=== PATIENT | female | born 1995 | race Caucasian/White ===

== ENCOUNTER 2024-05-24 19:08 | Inpatient (IN) | payer OTHER ==
[~2024-05-24] VITALS: Ht 167.6 cm; Wt 98.6 kg
[2024-05-24] MEDS ORDERED: FentaNYL 2mcg/ml-Bup 0.1% Epd 250 ML EPI PRN (19:45)
[2024-05-24] MEDS ORDERED: Lactated Ringer's 1,000 ML IV PRN ×3 (19:45→19:50)
[2024-05-24] MEDS ORDERED: Methylergonovine Maleate 0.2MG / ML 1ML Amp IM PRN (19:45)
[2024-05-24] MEDS ORDERED: ePHEDrine Sulfate 50 MG/ML 1ML Injection XX PRN (19:45)
[2024-05-24] MEDS ORDERED: OXYTOCIN/RINGER'S LACTATE 500 ML IV PRN (19:45)
[2024-05-24] MEDS ORDERED: Lactated Ringer's 1,000 ML IV SCH (19:45)
[2024-05-24] MEDS ORDERED: Oxytocin 10 Unit / ML Vial IM PRN (19:45)
[2024-05-24] MEDS ORDERED: Misoprostol 200 MCG Tab BC PRN (19:45)
[2024-05-24] MEDS ORDERED: Misoprostol 200 MCG Tab PR PRN (19:45)
[2024-05-24] MEDS ORDERED: Carboprost Tromethamine 250 MCG/ML 1ML Amp IM PRN (19:45)
[2024-05-24] MEDS ORDERED: Tranexamic Acid 100 ML IV PRN (19:50)
[2024-05-24] MEDS ORDERED: Misoprostol 25 MCG Tab VAG PRN (19:50)
[2024-05-24] MEDS ORDERED: Ondansetron HCl 2 MG / ML 2ML Vial IV PRN (19:50)
[2024-05-24] MEDS ORDERED: Acetaminophen 500 MG Tab PO PRN (19:50)
[2024-05-24] MEDS ORDERED: Calcium Carbonate 500 MG Tab Chew PO PRN (19:50)
[2024-05-24 19:58] VITALS: BP 133/74
[2024-05-24] MEDS ORDERED: DiphenhydrAMINE HCl 50 MG Cap PO PRN (20:15)
[2024-05-24] MEDS ORDERED: Zolpidem Tartrate 5 MG Tab PO PRN (20:15)
[2024-05-24] MEDS ORDERED: FentaNYL Citrate 50 MCG/ML 2 ML Injection IV PRN (20:20)
[2024-05-24] MEDS ORDERED: PRENATAL TABLE1 EAC2 PO (20:35)
[2024-05-24] MEDS ORDERED: Benzocaine/Benzethon Topical Anesthetic Spray 78GM TOP SCH (20:45)
[2024-05-24 21:44] LABS: BASOPHILS ABSOLUTE AUTO 0.02 K/mm3 (0.00-0.23); BASOPHILS PERCENT AUTO 0 % (0-2); EOSINOPHILS ABSOLUTE AUTO 0.04 K/mm3 (0.00-0.68); EOSINOPHILS PERCENT AUTO 0 % (0-6); Hematocrit 34.6 % (33.0-51.0); Hemoglobin 11.7 g/dL (11.5-16.0); IMMATURE GRAN ABSOLUTE AUTO 0.06 K/mm3 (0.00-0.10); IMMATURE GRAN PERCENT AUTO 1 % (0-1); LYMPHOCYTES ABSOLUTE AUTO 2.07 K/mm3 (0.84-5.20); LYMPHOCYTES PERCENT AUTO 23 % (21-46); MONOCYTES ABSOLUTE AUTO 0.52 K/mm3 (0.16-1.47); MONOCYTES PERCENT AUTO 6 % (4-13); Mean Corpuscular HGB 30.9 pg (26.0-34.0); Mean Corpuscular HGB Conc 33.8 g/dL (31.5-36.5); Mean Corpuscular Volume 91 fL (80-100); NEUTROPHILS ABSOLUTE AUTO 6.45 K/mm3 (1.96-9.15); NEUTROPHILS PERCENT AUTO 70 % (41-73); Platelet Count 155 K/mm3 (150-400); RDW Coefficient Variation 12.7 % (11.7-14.2); RDW Standard Deviation 41.8 fL (35.1-46.3); Red Blood Cell Count 3.79 M/mm3 (3.80-5.20); White Blood Cell Count 9.16 K/mm3 (4.00-11.30)
[2024-05-25] VITALS (29 sets, daily range): BP systolic 111–177; BP diastolic 54–96
[2024-05-25] MEDS ORDERED: OXYTOCIN/RINGER'S LACTATE 500 ML IV SCH ×2 (07:40→08:55)
[2024-05-26] VITALS (25 sets, daily range): BP systolic 114–141; BP diastolic 55–77
[2024-05-26] MEDS ORDERED: Ampicillin Sod 2,000 MG in NS 100 ML IV SCH (05:00)
[2024-05-26] MEDS ORDERED: Ampicillin Sod 1,000 MG in NS 50 ML IV SCH (09:00)
[2024-05-26] MEDS ORDERED: NS 0 ML IV ONE (12:33)
[2024-05-26 13:07] LABS: Albumin, Blood 2.2 g/dL (3.4-5.0); Albumin/Globulin Ratio 0.6 (0.8-1.8); Bilirubin, Total 0.7 mg/dL (0.1-1.0); Bun/Creatinine Ratio 14.2 (12.0-20.0); Calcium, Blood 8.3 mg/dL (8.5-10.1); Creatinine, Blood 0.7 mg/dL (0.40-1.00); Globulin, Blood 3.4 g/dL (2.2-4.0); Potassium, Blood 3.8 mmol/L (3.5-5.5); Total Protein, Blood 5.6 g/dL (6.4-8.2)
[2024-05-26] MEDS ORDERED: Benzocaine Topical Anesthetic Spray 60GM TOP PRN (14:45)
[2024-05-26] MEDS ORDERED: Witch Hazel/Glycerin PADS TOP PRN (14:45)
[2024-05-26] MEDS ORDERED: Docusate Sodium 100 MG Cap PO PRN (14:45)
[2024-05-26] MEDS ORDERED: OxyCODONE 5 mg/Acetamin 325 mg TABLET PO PRN (14:50)
[2024-05-26] MEDS ORDERED: Lanolin Cream TOP PRN (14:50)
[2024-05-26] MEDS ORDERED: Ibuprofen 400 MG Tab PO PRN (14:50)
[2024-05-26] MEDS ORDERED: Ketorolac Tromethamine 30mg Vial IV PRN (14:50)
[2024-05-26] MEDS ORDERED: FLU VACC TS2024-25(6MOS UP)/PF 45 MCG/0.5 ML SYRINGE IM SCH (14:50)
[2024-05-26] MEDS ORDERED: OXYTOCIN/RINGER'S LACTATE 500 ML IV SCH (14:50)
[2024-05-26] MEDS ORDERED: Lactated Ringer's 1,000 ML IV SCH (14:50)
[2024-05-26] MEDS ORDERED: Methylergonovine Maleate 0.2MG / ML 1ML Amp IM PRN (14:55)
[2024-05-26] MEDS ORDERED: Misoprostol 100 MCG Tab PO PRN (14:55)
[2024-05-26] MEDS ORDERED: Acetaminophen 325 MG TABLET PO PRN (14:55)
--- NOTE | 2024-05-26 17:25 | NUR ---
UP TO SHOWER, UNABLE TO VOID, SCANT VAG BLEEDING, ENCORUAGED PT TO TRY AGAIN AT [phone]. IF NOT ABLE TO VOID WILL BLADDER SCAN PT.
--- NOTE | 2024-05-26 18:37 | NUR ---
pt has tried to void twice since 1800. no luck, did bladder scan ad [id number] of urine in bladder.
--- NOTE | 2024-05-26 18:52 | NUR ---
keisha rodriguez notified new orders to walter cath pt at 191. pt is to try to void again. if no void, place walter, if more than 200cc of urine come present to leave walter cath in, if 200 or less cc of urine present to only straight cath/
[2024-05-26] MEDS ORDERED: Bethanechol CHl 25 MG Tab PO PRN (18:55)
--- NOTE | 2024-05-26 19:11 | NUR ---
PT VOIDED 500CC OF TEA COLORED URINE
[2024-05-26] MEDS ORDERED: Benzocaine/Benzethon Topical Anesthetic Spray 78GM TOP PRN (22:25)
[2024-05-27 07:29] VITALS: BP 130/91
[2024-05-27] MEDS ORDERED: Prenatal Vit/FE Fumarate/FA 1 Tab PO SCH (09:00)
[2024-05-27 09:11] LABS: Hematocrit 30.1 % (33.0-51.0); Hemoglobin 10.2 g/dL (11.5-16.0); Mean Corpuscular HGB 31.5 pg (26.0-34.0); Mean Corpuscular HGB Conc 33.9 g/dL (31.5-36.5); Mean Corpuscular Volume 93 fL (80-100); Mean Platelet Volume 14.6 fL (9.1-12.4); Platelet Count 135 K/mm3 (150-400); RDW Standard Deviation 44.1 fL (35.1-46.3); Red Blood Cell Count 3.24 M/mm3 (3.80-5.20)
[2024-05-27] MEDS ORDERED: IBUP800 PO (10:11)
[2024-05-27 14:58] VITALS: BP 139/90
--- NOTE | 2024-05-27 15:09 | NUR ---
HAS PPFU APPT, HAS COPY OF DCINSTRUCTIONS, ENCOURAGED TO CALL IF HAS QUESTIONS
== END 2024-05-27 15:20 | disposition home or self-care (01) | DRG 806 ==
LOC: OBS 19:08 → BC 19:28
PROVIDERS: ADMIT Advanced Practice Midwife
PROC: 10E0XZZ Delivery of Products of Conception, External Approach (ICD-10-PCS; principal; 2024-05-26)
PROC: 0KQM0ZZ Repair Perineum Muscle, Open Approach (ICD-10-PCS; 2024-05-26)
PROC: 10907ZC Drainage of Amniotic Fluid, Therapeutic from Products of Conception, Via Natural or Artificial Opening (ICD-10-PCS; 2024-05-26)
PROC: 3E0R3BZ Introduction of Anesthetic Agent into Spinal Canal, Percutaneous Approach (ICD-10-PCS; 2024-05-26)
PROC: 00HU33Z Insertion of Infusion Device into Spinal Canal, Percutaneous Approach (ICD-10-PCS; 2024-05-26)
DX: O42.02 Full-term premature rupture of membranes, onset of labor within 24 hours of rupture (principal); O99.324 Drug use complicating childbirth; Z37.0 Single live birth; Z3A.39 39 weeks gestation of pregnancy; O70.1 Second degree perineal laceration during delivery; F12.90 Cannabis use, unspecified, uncomplicated; Z79.899 Other long term (current) drug therapy
CPT/HCPCS: 36415; 51702; 80053; 85025; 85027; 86850; 86900; 86901; 86923; A9270; J0290; J2405; J2590; J3010; J7120